=== PATIENT | female | born 2000 | race Caucasian/White ===

== ENCOUNTER 2023-03-06 18:01 | Emergency (ER) | payer BC ==
[2023-03-06] MEDS ORDERED: HYDROcodone/Acetaminophen 7.5/325 mg Tablet ONE (19:55)
[2023-03-06] MEDS ORDERED: Ketorolac Tromethamine 30 MG/ML VIAL ONE (19:55)
[2023-03-06] MEDS ORDERED: predniSONE 20 MG TAB ONE (19:55)
[2023-03-06] MEDS ORDERED: Gabapentin 300 MG CAP PO SCH (20:00)
[2023-03-06] MEDS ORDERED: Morphine 4 MG/ML VIAL ONE (23:05)
[2023-03-07] MEDS ORDERED: Ketamine In 0.9 % NaCl 50 MG/5 ML SYRINGE ONE (02:03)
[2023-03-07] MEDS ORDERED: Diazepam 5 MG TAB ONE (04:14)
== END 2023-03-07 04:34 | disposition home or self-care (01) ==
LOC: ERS 18:01
DX: M54.50 Low back pain, unspecified (principal); Z79.899 Other long term (current) drug therapy
CPT/HCPCS: 96372; 96374; J1885; J2270; J3490; J7512